=== PATIENT | male | born 1955 | race American Indian/Alaskan Native ===

== ENCOUNTER 2018-05-02 09:30 | Emergency (ER) | payer MEDICARE ==
[2018-05-02] MEDS ORDERED: VITAMIN B-1 100 MG, FOLVITE 1 MG, INFUVITE 10 ML in NACL 0.9% 1000 ML 1,000 ML IV ONE (10:37)
--- NOTE | 2018-05-02 10:42 | Emergency Department Report ---
ED N/V/D HPI - General Chief complaint: Nausea/Vomiting/Diarrhea Stated complaint: SHAKING, N/V Time Seen by Provider: 05/02/18 10:26 Source: patient Mode of arrival: Ambulatory Limitations: No Limitations - History of Present Illness Initial comments: 62-year-old male presents to the ED with complaints of nausea and vomiting 2 months. Patient reports history of alcohol abuse and acid reflux. Patient reports over the last month he has been vomiting every morning upon awakening. Patient states he is unable to tolerate solid foods. However, patient does report that he is still drinking approximately 2 pints of gin daily, and is able to keep that down. Patient denies abdominal pain or diarrhea. Denies fever. Patient reports weight loss. States he decided to come to the ER today because "people keep telling me I look like I'm sick. "Patient also reports tremor that resolves when he drinks alcohol. States last drink was last night. PCP: Dr Gabriel LANDERS complaint: nausea, vomiting -: month(s) (2) Description of Vomiting: food contents, watery Associated Abdominal Pain: No Severity: moderate Consistency: constant Improves with: none Worsens with: eating Context: alcohol abuse Associated Symptoms: loss of appetite, nausea/vomiting. denies: chest pain, cough, diaphoresis, fever/chills - Related Data Previous Rx's Medication Instructions Recorded Last Taken Type Ondansetron [Zofran Odt] 4 mg PO Q8HR PRN #20 tab.rapdis 05/02/18 Unknown Rx Allergies Allergy/AdvReac Type Severity Reaction Status Date / Time No Known Allergies Allergy Verified 05/02/18 10:39 ED Review of Systems ROS: Stated complaint: SHAKING, N/V Other details as noted in HPI Comment: All other systems reviewed and negative Constitutional: denies: chills, fever Cardiovascular: denies: chest pain Gastrointestinal: nausea, vomiting. denies: abdominal pain, diarrhea ED Past Medical Hx - Past Medical History Previous Medical History?: No - Surgical History Additional Surgical History: foot surgery - Social History Smoking Status: Current Every Day Smoker Substance Use Type: Alcohol - Medications Home Medications: Home Medications Medication Instructions Recorded Confirmed Last Taken Type Ondansetron [Zofran Odt] 4 mg PO Q8HR PRN #20 tab.rapdis 05/02/18 Unknown Rx ED Physical Exam - General Limitations: No Limitations General appearance: alert, in no apparent distress - Head Head exam: Present: atraumatic, normocephalic - Eye Eye exam: Present: normal appearance - Respiratory Respiratory exam: Present: normal lung sounds bilaterally. Absent: respiratory distress - Cardiovascular Cardiovascular Exam: Present: normal rhythm, tachycardia - GI/Abdominal GI/Abdominal exam: Present: soft. Absent: distended, tenderness - Extremities Exam Extremities exam: Present: normal inspection - Neurological Exam Neurological exam: Present: alert, oriented X3, CN II-XII intact, other ( resting tremor noted on exam) - Psychiatric Psychiatric exam: Present: normal affect, normal mood - Skin Skin exam: Present: other (skin is dry) ED Course Vital Signs 05/02/18 05/02/18 05/02/18 09:35 09:47 09:48 Temperature 99.3 F Pulse Rate 144 H 129 H 121 H Respiratory 18 12 13 Rate Blood Pressure 126/82 O2 Sat by Pulse 100 Oximetry 05/02/18 05/02/18 05/02/18 09:49 09:50 09:51 Temperature Pulse Rate 119 H 118 H 117 H Respiratory 13 16 14 Rate Blood Pressure 128/82 128/82 O2 Sat by Pulse Oximetry 05/02/18 05/02/18 05/02/18 09:53 09:55 09:57 Temperature Pulse Rate 116 H 117 H 115 H Respiratory 12 14 14 Rate Blood Pressure 128/82 128/82 128/82 O2 Sat by Pulse Oximetry 05/02/18 05/02/18 05/02/18 09:59 10:00 10:01 Temperature Pulse Rate 117 H 114 H 117 H Respiratory 15 12 13 Rate Blood Pressure 131/82 131/82 131/82 O2 Sat by Pulse Oximetry 05/02/18 05/02/18 05/02/18 10:03 10:05 10:07 Temperature Pulse Rate 117 H 117 H 118 H Respiratory 12 14 14 Rate Blood Pressure 131/82 131/82 131/82 O2 Sat by Pulse Oximetry 05/02/18 05/02/18 05/02/18 10:09 10:11 11:00 Temperature Pulse Rate 119 H 108 H 111 H Respiratory 13 15 13 Rate Blood Pressure 131/82 131/82 109/69 O2 Sat by Pulse 100 Oximetry 05/02/18 05/02/18 05/02/18 12:12 13:00 14:00 Temperature Pulse Rate 114 H 106 H 104 H Respiratory 11 L 15 15 Rate Blood Pressure 121/71 117/76 117/80 O2 Sat by Pulse 100 100 100 Oximetry ED Medical Decision Making - Lab Data Result diagrams: 05/02/18 10:41 05/02/18 10:45 - EKG Data -: EKG Interpreted by Me EKG shows normal: sinus rhythm, axis, intervals, QRS complexes, ST-T waves Rate: bradycardia - EKG Data Interpretation: no acute changes - Medical Decision Making 62-year-old male alcoholic who presents to ED with complaints of vomiting 2 months. Labs show mild elevation of AST and total bili are consistent with alcoholic liver disease. CT abdomen and pelvis unremarkable for any acute findings. Gallstones present, however no evidence of cholecystitis. Lipase normal. Banana bag given here in ED. Heart rate improved. Pt tolerated marisol crackers and water. Although reports of daily vomiting, potassium and renal function normal. Will discharge at this time w/ prescription for zofran, GI follow-up. Spoke w/ pt about effects of alcohol abuse. Patient given return precautions. - Differential Diagnosis dehydration, ARF, hypokalemia, bowel obstruction Critical care attestation.: If time is entered above; I have spent that time in minutes in the direct care of this critically ill patient, excluding procedure time. ED Disposition Clinical Impression: Nausea and vomiting, Dehydration, Alcohol abuse, Gallstones Disposition: - TO HOME OR SELFCARE Is pt being admited?: No Condition: Stable Instructions: Biliary Colic (ED), Abuse of Alcohol (ED), Acute Nausea and Vomiting (ED) Prescriptions: Ondansetron [Zofran Odt] 4 mg PO Q8HR PRN #20 tab.rapdis PRN Reason: Vomiting Referrals: PRIMARY CARE, [Primary Care Provider] - 3-5 Days [facility] [Provider Group] - 3-5 Days LAVONNE GOSS DO [Staff Physician] - 3-5 Days Time of Disposition: 14:53
[2018-05-02 10:51] LABS: Basophils % (Auto) 0.3 % (0.0-1.8); Eosinophils % (Auto) 0.2 % (0.0-4.3); Hematocrit 35.6 % (35.5-45.6); Hemoglobin 12.2 gm/dl (11.8-15.2); Lymphocytes # (Auto) 1.5 K/mm3 (1.2-5.4); Lymphocytes % (Auto) 12.9 % (13.4-35.0); Mean Corpuscular HGB Conc 34 % (32-34); Mean Corpuscular Hemoglobin 39 pg (28-32); Mean Corpuscular Volume 114 fl (84-94); Monocytes # (Auto) 1.6 K/mm3 (0.0-0.8); Monocytes % (Auto) 13.5 % (0.0-7.3); Platelet Count 116 K/mm3 (140-440); Red Blood Count 3.11 M/mm3 (3.65-5.03); Red Cell Distribution Width 15.1 % (13.2-15.2)
[2018-05-02 11:15] LABS: Alanine Aminotransferase 42 units/L (7-56); Albumin 3.7 g/dL (3.9-5); BUN/Creatinine Ratio 6; Blood Urea Nitrogen 5 mg/dL (9-20); Calcium 9.7 mg/dL (8.4-10.2); Hemolysis Index 51; Lipase 60 units/L (13-60)
[2018-05-02] MEDS ORDERED: FOLVITE ONE (11:15)
--- NOTE | 2018-05-02 13:09 | Cat Scan Report ---
CT ABDOMEN PELVIS WITH CONTRAST: HISTORY: Vomiting. COMPARISON: none. TECHNIQUE: Helical CT in 1.25mm intervals following IV contrast. Sagittal and coronal reconstructions. Please note that portions of the right upper quadrant and presacral space are not included. FINDINGS: Lung bases: Normal. Liver: Moderate diffuse decreased attenuation is noted throughout most of the liver. This presumably represents fatty infiltration or edema. No focal liver mass. Biliary system: Sludge and multiple small gallstones are identified within the gallbladder. No obvious findings of acute cholecystitis. Pancreas: Normal. Spleen: Normal. Kidneys/ureters/bladder: Normal. Adrenal glands: Normal. Aorta: Mild distal calcifications. No aneurysm. Intestines: Within normal limits given no oral contrast was administered. Appendix: Normal. Pelvic viscera: Normal. Ascites: None. Adenopathy: None. Musculoskeletal: Mild thoracolumbar spondylosis. No obvious fracture or bony lesion. The sacrum is not included. IMPRESSION: Decreased attenuation of the liver consistent with fatty infiltration or edema. Cholelithiasis. No acute inflammatory process is appreciated.
[2018-05-02 14:06] VITALS: BP 117/80
== END 2018-05-02 15:13 | disposition home or self-care (01) ==
LOC: ED 09:30
DX: E86.0 Dehydration (principal); F10.10 Alcohol abuse, uncomplicated; R11.2 Nausea with vomiting, unspecified; K80.80 Other cholelithiasis without obstruction; F17.200 Nicotine dependence, unspecified, uncomplicated
CPT/HCPCS: 36415; 74177; 80053; 83690; 85025; 93005; 93010; 96365; 96366; 99284; G0480; J3411; J7030; Q9967; 80320